=== PATIENT | female | born 1955 | race Caucasian/White ===

== ENCOUNTER 2020-05-28 09:26 | Emergency (ER) | payer OTHER, SELFPAY ==
--- NOTE | ~2020-05-28 | XR_ITS ---
EXAMINATION: XR knee RT 2V EXAM DATE: 05/28/2020 10:25 INDICATION: No known recent injury provided at this time. Pain of the right knee. Swelling. TECHNIQUE: Frontal and lateral projections of the right knee. There is no prior study for compariso n. FINDINGS: There is no right knee joint effusion. There are no acute fractures or dislocations identi fied. There is no subcutaneous gas. There is severe edema anterior to the patella and patellar tend on which is nonspecific, but could indicate prepatellar bursitis. There are no radiopaque foreign elva dies. There is minimal primary osteoarthritis. IMPRESSION: Severe anterior soft tissue swelling, nonspecific. Recommend considering prepatellar burs itis. Reviewed, dictated and finalized at location G. IMPRESSION: Severe anterior soft tissue swelling, nonspecific. Recommend consid ering prepatellar bursitis.
[2020-05-28 09:41] VITALS: BP 140/88; PULSE 88; RESP 20; TEMP 36.6; O2SAT 98
[2020-05-28] MEDS: KETOROLAC 30 MG/ML VIAL (*BKC) IV PUSH (09:53)
[2020-05-28 10:20] LABS: Hematocrit 38.4 % (35.0-49.0); Hemoglobin 13.2 g/dL (12.0-15.0); Mean Corpuscular HGB Conc 34.4 g/dL (32.0-36.0); Mean Corpuscular Hemoglobin 31.7 pg (27.0-31.0); Mean Corpuscular Volume 92.3 fL (78.0-102.0); Mean Platelet Volume 8.4 fl (9.2-11.8); Platelet Count Result 234 K/mm3 (150-420); Red Blood Count 4.16 M/mm3 (4.20-5.40); Red Cell Distribution Width 12.1 % (11.6-14.4); White Blood Count 12.9 K/mm3 (4.8-10.8)
[2020-05-28 10:31] LABS: Alanine Aminotransferase 25 U/L (14-59); Albumin Level 3.3 g/dL (3.4-5.0); Alkaline Phosphatase 65 U/L (46-116); Anion Gap 13.7 mmol/L (7-16); Aspartate Amino Transferase 20 U/L (15-37); Bilirubin,Total 1.2 mg/dL (0.00-1.00); Blood Urea Nitrogen 17 mg/dL (7-18); Calcium 8.3 mg/dL (8.5-10.1); Carbon Dioxide 24 mmol/L (21-32); Chloride 103 mmol/L (98-108); Estimated CRCL calculation 47 ml/min; Estimated Glomerular Filt Rate 48; Glucose 207 mg/dL (70-99); Osmolality Calculated 291 mOsm/kg (285-295); Potassium 3.7 mmol/L (3.5-5.1); Sodium 137 mmol/L (136-145); Total Protein 6.9 g/dL (6.4-8.2)
--- NOTE | 2020-05-28 10:39 | ED.GENADULT ---
HPI - General Adult General Chief complaint: Unspecified Stated complaint: Right knee Source: patient Mode of arrival: ambulatory Limitations: no limitations History of Present Illness HPI narrative: This is a 64-year-old gentleman with no significant past medical history that presents with right anterior knee swelling no known injury at except for walking up and down ladders while working, no blunt injury there is some warmth and swelling and tenderness to the anterior right knee has mildly reduced range of motion secondary to swelling, patient is afebrile, no no drainage from the knee no wounds noted, there is no chest pain, no shortness of breath no abdominal pain no fever chills. Onset (ago): day(s) Location: right and lower extremity Severity: moderate Quality: aching Pain Consistency: constant Relieving factors: cold therapy Exacerbating factors: movement Associated symptoms: denies other symptoms Treatments prior to arrival: none Related Data Allergies Allergy/AdvReac Type Severity Reaction Status Date / Time No Known Allergies Allergy Verified 05/28/20 09:39 Review of Systems Review of Systems: All systems reviewed & are unremarkable except as noted in HPI and below PMFSH Past Medical History Medical History Patient denies medical problems Social History Social History Gender identity (if verbalized by the patient): Male Exam Const: General: no acute distress and alert Orientation/consciousness: patient oriented x3 Limitations: altered mental status HENMT: Head: normal to inspection Eyes: Conjunctivae: conjunctivae normal Pupils: Equal, round and reactive pupils present EOM: EOMs intact bilaterally Neck: Neck: normal visual inspection, no lymphadenopathy and no meningeal signs Chest: Chest palpation & inspection: normal inspection of the chest Resp: Effort & Inspection: normal respiratory effort Auscultation: clear to auscultation bilaterally Cardio: Rate: regular rate Rhythm: regular rhythm GI: GI Palp: Yes Soft to palpation Percussion: Yes normal to percussion Back/Spine/Pelvis: Back: no CVA tenderness Skin: Other: right anterior knee pain with swelling redness and warmth and tender to touch. Psych: Appearance: grossly normal Mental Status: mental status grossly normal Thought content: Yes Normal thought content present Course Course Emergency Course: Patient received ceftriaxone and Toradol and appears more comfortable and advised patient to follow-up with primary care doctor can use cold compress to affected knee limit his activities and take medicine as prescribed. Vital Signs Vital signs: Vital Signs Temperature 36.6 C 05/28/20 09:41 Pulse Rate 88 05/28/20 09:41 Respiratory Rate 20 05/28/20 09:41 Blood Pressure 140/88 05/28/20 09:41 Pulse Oximetry 98 05/28/20 09:41 Temperature 36.6 C 05/28/20 09:41 Pulse Rate 88 05/28/20 09:41 Respiratory Rate 20 05/28/20 09:41 Blood Pressure 140/88 05/28/20 09:41 Pulse Oximetry 98 05/28/20 09:41 Medical Decision Making Vital Signs Vital Signs: Vital Signs Temperature 36.6 C 05/28/20 09:41 Pulse Rate 88 05/28/20 09:41 Respiratory Rate 20 05/28/20 09:41 Blood Pressure 140/88 05/28/20 09:41 Pulse Oximetry 98 05/28/20 09:41 Temperature 36.6 C 05/28/20 09:41 Pulse Rate 88 05/28/20 09:41 Respiratory Rate 05/28/20 09:41 Blood Pressure 140/88 05/28/20 09:41 Pulse Oximetry 98 05/28/20 09:41 Lab Data Result diagrams: 05/28/20 09:57 05/28/20 09:57 Labs: Lab Results 05/28/20 05/28/20 05/28/20 Range/Units 09:57 09:57 09:57 WBC 12.9 H (4.8-10.8) K/mm3 RBC 4.16 L (4.20-5.40) M/mm3 Hgb 13.2 (12.0-15.0) g/dL Hct 38.4 (35.0-49.0) % MCV 92.3 (78.0-102.0) fL MCH 31.7 H (27.0-31.0) pg MCHC
[2020-05-28 10:52] VITALS: BP 130/70; PULSE 70; RESP 16; TEMP 36.6
== END 2020-05-28 10:56 | disposition home or self-care (01) ==
PROVIDERS: Emergency Provider Emergency Medicine; PCP Internal Medicine
DX: L03.115 Cellulitis of right lower limb (principal); M70.51 Other bursitis of knee, right knee
CPT/HCPCS: 36415; 73560; 80053; 83605; 85027; 87040; 96365; 96375; 99283; 99284; J0696; J1885

== ENCOUNTER 2020-06-18 10:12 | Outpatient (CLI) | payer OTHER, SELFPAY ==
--- NOTE | ~2020-06-18 | MR_ITS ---
EXAMINATION: MR knee RT wo/w con DATE: 06/18/2020 11:28 INDICATION: Right knee joint effusion. Septic arthritis. Right knee pain. TECHNIQUE: Magnetic resonance imaging (MRI) of the right knee was performed without and with 18 mL Mu ltiHance intravenous contrast. Sequences included axial T1-weighted FS FSE and axial, sagittal, and c oronal T1-weighted FSE, T2-weighted FS FSE, and postcontrast T1-weighted FS FSE. COMPARISON: Right knee radiographs 05/28/2020 FINDINGS: Medial compartment: There is a complex tear involving body and posterior horn of medial meniscus. There is cartilage surf chi irregularity of tibial condyle. There is deep partial thickness cartilage loss of femoral condyle involving the central articular surface with mild subchondral edema-like marrow signal intensity. Th ere is shallow partial-thickness cartilage loss of femoral condyle involving the lateral and posterio r articular surface. Osteophytes are noted. Lateral compartment: There is an undersurface horizontal tear of body of lateral meniscus. There is deep partial thickness cartilage loss involving posterior tibial articular surface and posterior femoral articular surface. There is extensive cartilage surface irregularity of femoral condyle and tibial condyle. Osteophytes are noted. Patellofemoral compartment: There is full-thickness cartilage loss of patellar medial facet with mild subchondral edema-like yovanny ow signal intensity. There is cartilage surface irregularity of patellar lateral facet. There is a la rge area of full-thickness cartilage loss of central and medial trochlea with mild subchondral edema edema-like marrow signal intensity. Osteophytes are noted. Ligaments and tendons: The anterior and posterior cruciate ligaments are normal. Medial collateral ligament and lateral curtis ateral ligament complex are normal. There is mild patellar tendinopathy. Fluid: There is no knee joint effusion. There is prepatellar bursitis with a fluid collection measuring 2.3 x 0.8 x 2.9 cm with surrounding soft tissue swelling. IMPRESSION: 1. Prepatellar bursitis. 2. Severe chondrosis of patellofemoral compartment and moderate chondrosis of medial and lateral comp artments. 3. Tears of medial and lateral menisci. Reviewed, dictated and finalized at location A. IMPRESSION: 1. Prepatellar bursitis. 2. Severe chondrosis of patellofemoral compartment and moderate chondrosis of m edial and lateral compartments. 3. Tears of medial and lateral menisci.
== END 2020-06-18 10:13 | disposition home or self-care (01) ==
PROVIDERS: PCP Internal Medicine; Visit Provider Internal Medicine
DX: M25.561 Pain in right knee (principal); M25.461 Effusion, right knee; M00.9 Pyogenic arthritis, unspecified
CPT/HCPCS: 73723; A9577

== ENCOUNTER → 2020-12-23 02:32 | Outpatient (CLI) | payer OTHER, SELFPAY ==
[2020-12-23 21:58] LABS: SARS-CoV-2 RNA PCR Negative
== END ==
PROVIDERS: PCP Internal Medicine; Visit Provider Surgery
DX: Z01.812 Encounter for preprocedural laboratory examination (principal); Z20.822 Contact with and (suspected) exposure to COVID-19
CPT/HCPCS: C9803; U0003; U0005

== ENCOUNTER 2020-12-26 01:04 | Day surgery (SDC) | payer OTHER, SELFPAY ==
[2020-12-16 08:20] VITALS: BMI 24.5
--- NOTE | 2020-12-23 09:43 | WPDANESEPPF ---
Anes - Initial Pre Proc Eval Procedure: Operation Date: 12/26/20 12:00 Proposed Procedures p Screening Colonoscopy - Dannie York DO Date/Time: 12/23/20 09:43 Surgeon: Dannie York DO Pre Op Diagnosis: Neoplasm Screening Patient Data Age: 65 Gender: M Height: 1.8 m Weight: 80 kg Allergies Allergy/AdvReac Type Severity Reaction Status Date / Time No Known Allergies Allergy Verified 12/26/20 10:38 Home Medications Medication Instructions Recorded Confirmed Type No Home Medications 12/16/20 12/16/20 History Patient hx anesthesia problems: none Family hx anesthesia problems: none PMFSH Social History Social History Smoking packs per day: 1 Smoking cigarettes per day: 20.0 Years smoked: 12 Smoking pack-years: 12.00 Smoking status: Former smoker Tobacco type: cigarettes Alcohol intake: current Drinks per week: 10 Substance use: never Substance use type: does not use Living arrangements: with family Gender identity (if verbalized by the patient): Male Spiritual care concerns: No Anes - Eval Final PreProcedure Day of Procedure 12/23/20 09:43 Patient weight: normal Heart: regular rate and rhythm Lungs: clear to auscultation and normal air movement Airway: Mallampati scale class II Neurological: alert and oriented Last oral intake: >/= 8 hours ASA classification: II Emergent: no Anesthetic plan: proceed Anesthesia type and monitoring: general GIVS and standard monitoring Informed Consent: The patient's anesthetic plan and its attendant risks and benefits were discussed with the patient/family/POA. Questions were solicited and answers provided to the satisfaction of the patient/family/POA.
[2020-12-26 10:40] VITALS: BP 156/80; PULSE 76; RESP 18; TEMP 36.5; O2SAT 100
[2020-12-26] MEDS: LACTATED RINGERS 1,000 ML 150 ML IV CONT (10:43)
--- NOTE | 2020-12-26 11:49 | PM.IMHP ---
H&P: HPI History of Present Illness Date/Time: 12/26/20 11:49 Chief Complaint: Screening for CRC Narrative: Otilio Fox Jr. is a 65 year old male who presents for colonoscopy. He thinks it has been 14 years since his last colonoscopy. He denies hematochezia or melena, and denies fam hx colon cancer. Review of Systems Review of Systems: All systems reviewed & are unremarkable except as noted in HPI and below Constitutional: Constitutional: Denies chills, Denies fever(s), Denies headache(s) and Denies weight loss Eyes: Eyes: Denies change in vision ENT: Denies dizziness, Denies headache(s), Denies neck mass and Denies throat swelling Cardiovascular: Cardiovascular: Denies chest pain, Denies lightheadedness and Denies dyspnea Respiratory: Respiratory: Denies cough, Denies dyspnea and Denies wheezing Gastrointestinal: Gastrointestinal: Denies abdominal pain, Denies change in bowel habits, Denies nausea and Denies vomiting Genitourinary: Genitourinary: Denies hematuria and Denies dysuria Musculoskeletal: Musculoskeletal: Reports as per HPI Integumentary/Breasts: Skin/Breast: Reports as per HPI Neurologic: Denies dizziness and Denies headache(s) Allergic/Immunologic: Allergic/Immunologic: Denies throat swelling and Denies wheezing [facility] Social History Social History Smoking packs per day: 1 Smoking cigarettes per day: 20.0 Years smoked: 12 Smoking pack-years: 12.00 Smoking status: Former smoker Tobacco type: cigarettes Alcohol intake: current Drinks per week: 10 Substance use: never Substance use type: does not use Living arrangements: with family Gender identity (if verbalized by the patient): Male Spiritual care concerns: No Meds Home Medications and Allergies Home Medications Medication Instructions Recorded Confirmed Type No Home Medications 12/16/20 12/16/20 History Allergies Allergy/AdvReac Type Severity Reaction Status Date / Time No Known Allergies Allergy Verified 12/26/20 10:38 Vital Signs Vital Signs - 24 hr 12/26/20 10:40 Temperature 36.5 C Pulse Rate 76 Respiratory Rate 18 Blood Pressure 156/80 H Pulse Oximetry 100 Exam Const: General: no acute distress and alert Orientation/consciousness: patient oriented x3 HENMT: Head: normocephalic and atraumatic Ears: hearing grossly normal bilaterally General nose exam: Normal nares present Mouth: Yes Normal oral and palatal mucosa present Eyes: Periorbital: periorbital findings normal Sclera: sclerae normal EOM: EOMs intact bilaterally Neck: Neck: normal visual inspection, no lymphadenopathy and trachea midline Chest: Chest palpation & inspection: normal inspection of the chest Resp: Effort & Inspection: normal respiratory effort Auscultation: clear to auscultation bilaterally Cardio: Jugular venous distension: no JVD Rate: regular rate Rhythm: regular rhythm Heart sounds: S1 normal heart sound present and S2 normal heart sound present Peripheral pulses: Peripheral pulses 2+ throughout GI: Inspection: normal to inspection GI Palp: Yes Soft to palpation, No Tenderness to palpation present (GI), No Guarding due to palpation present (GI) and No Rebound tenderness present Percussion: Yes normal to percussion Auscultation: normal bowel sounds : General: Yes no CVA tenderness Back/Spine/Pelvis: Back: no CVA tenderness Neuro: General: patient oriented x3, no focal motor deficits and CN's II-XI intact bilaterally Cognition (Neuro): normal cognition Speech: normal speech Motor exam (neuro): 5/5 motor strength present throughout Extrem: General: capillary refill normal and no clubbing, cyanosis or edema Assessment and Plan Assessment and plan (1) Screening for colorectal cancer: Code(s): Z12.11 - Encounter for screening for malignant neoplasm of colon; Z12.12 - Encounter for screening for malignant neoplasm of rectum
[2020-12-26 12:17] VITALS: BP 104/65; PULSE 60; RESP 16; O2SAT 95
[2020-12-26 12:27] VITALS: BP 116/61; PULSE 52; RESP 18; O2SAT 99
[2020-12-26 12:37] VITALS: BP 122/73; PULSE 48; RESP 18; O2SAT 100
== END 2020-12-26 12:54 | disposition home or self-care (01) ==
PROVIDERS: PCP Internal Medicine; Visit Provider Surgery
PROC: 0DJD8ZZ Inspection of Lower Intestinal Tract, Via Natural or Artificial Opening Endoscopic (ICD-10-PCS; CPT 45378; principal; 2020-12-26 12:00)
DX: Z12.11 Encounter for screening for malignant neoplasm of colon (principal); Z87.891 Personal history of nicotine dependence; K57.30 Diverticulosis of large intestine without perforation or abscess without bleeding; K64.8 Other hemorrhoids
CPT/HCPCS: 45378; C9803; J2001; J2704; J7120; U0003; U0005

== ENCOUNTER 2021-09-18 10:00 | Outpatient (CLI) | payer MEDICARE, SELFPAY ==
[2021-09-18 11:16] LABS: Influenza A QL RT-PCR Negative (Negative); Influenza B QL RT-PCR Negative (Negative); SARS-CoV-2 RNA PCR Negative (Negative)
== END 2021-09-18 10:01 | disposition home or self-care (01) ==
PROVIDERS: PCP Internal Medicine; Visit Provider Internal Medicine
DX: J06.9 Acute upper respiratory infection, unspecified (principal); Z20.822 Contact with and (suspected) exposure to COVID-19
CPT/HCPCS: 87502; C9803; U0003; U0005

== ENCOUNTER 2021-10-16 13:02 | Outpatient (CLI) | payer MEDICARE, SELFPAY ==
[2021-10-16 14:29] LABS: Influenza A QL RT-PCR Negative (Negative); Influenza B QL RT-PCR Negative (Negative); SARS-CoV-2 RNA PCR Positive (Negative)
== END 2021-10-16 13:03 | disposition home or self-care (01) ==
LOC: CHSLAB 13:05
PROVIDERS: PCP Internal Medicine; Visit Provider Nurse Practitioner Family
DX: Z20.822 Contact with and (suspected) exposure to COVID-19 (principal); R50.9 Fever, unspecified
CPT/HCPCS: 87502; C9803; U0003; U0005

== ENCOUNTER 2021-10-17 10:02 | Outpatient (CLI) | payer MEDICARE, SELFPAY ==
--- NOTE | 2021-10-17 10:15 | PC.NURSE ---
PT to room 211 amb. A&Ox3. Has no complaints. Regeneron infusion plan of care explained. Consent signed. Pt has no questions. Oriented to room. Call randall in reach. Reminded to call with needs.
[2021-10-17] MEDS: diphenhydrAMINE HCl CAP 25 MG CAPSULE PO (10:34)
[2021-10-17 10:46] VITALS: BP 149/82; PULSE 70; RESP 20; TEMP 37.2; O2SAT 96
--- NOTE | 2021-10-17 12:03 | PC.NURSE ---
Pt has no complaints. Discharged to home amb per self.
== END 2021-10-17 10:03 | disposition home or self-care (01) ==
LOC: CHSTREATRM 10:04
PROVIDERS: PCP Nurse Practitioner Family; Visit Provider Nurse Practitioner Family
DX: U07.1 COVID-19 (principal)
CPT/HCPCS: A9270; J7050; M0243; Q0244

== ENCOUNTER 2022-10-12 09:12 | Outpatient (CLI) | payer MEDICARE, SELFPAY ==
--- NOTE | ~2022-10-12 | XR_ITS ---
XR wrist RT min 3V DATE: 10/12/2022 09:39 INDICATION: Bilateral wrist and hand pain TECHNIQUE: 4 views COMPARISON: None FINDINGS: Severe joint space narrowing and spurring at the first carpometacarpal joint consistent wit h severe osteoarthritis. Prominent osteoarthritic changes noted including first, fourth and fifth metacarpophalangeal joints. There is mild spurring at the radiocarpal joint. No fracture, dislocation, periosteal reaction or bone destruction, erosive change or chondrocalcinosi s. IMPRESSION: Polyarticular osteoarthritis, particularly severe at first carpometacarpal joint Reviewed, dictated and finalized at location B. ORT ATTENDANT IMPRESSION: Polyarticular osteoarthritis, particularly severe at first carpomet acarpal joint
--- NOTE | ~2022-10-12 | XR_ITS ---
XR wrist LT min 3V DATE: 10/12/2022 09:39 INDICATION: Bilateral wrist and hand joint pain TECHNIQUE: 4 views COMPARISON: None FINDINGS: Severe joint space narrowing and very prominent spurring at the first carpometacarpal joint consistent with severe osteoarthritis. No fracture or dislocation, periosteal reaction or bone destruction or chondrocalcinosis. IMPRESSION: Severe osteoarthritis at first carpometacarpal joint Reviewed, dictated and finalized at location B. TIER
--- NOTE | ~2022-10-12 | XR_ITS ---
XR hand RT min 3V DATE: 10/12/2022 09:38 INDICATION: Bilateral hand joint pain TECHNIQUE: 3 views COMPARISON: None FINDINGS: Prominent polyarticular osteoarthritis producing severe at the first carpometacarpal and fi rst through fourth metacarpal phalangeal joints, moderately prominent osteoarthritis of the metacarpo phalangeal joint as well. Osteoarthritic change involving multiple interphalangeal joints, most sever e at the distal interphalangeal joint of the third digit. There is mild spurring at the radiocarpal j oint. No fracture or dislocation, periosteal reaction or bone destruction, erosive change or chondrocalcino sis. IMPRESSION: Polyarticular osteoarthritis Reviewed, dictated and finalized at location B. NERY TECHNICIAN
--- NOTE | ~2022-10-12 | XR_ITS ---
XR hand LT min 3V DATE: 10/12/2022 09:38 INDICATION: Bilateral hand joint pain TECHNIQUE: 3 views COMPARISON: None FINDINGS: No fracture or dislocation, periosteal reaction or bone destruction. There is prominent polyarticular osteophytosis, increased severe joint space narrowing and very promi nent spurring at the first carpometacarpal joint, prominent osteophytic change at the first through t hird metacarpophalangeal joints and multiple interphalangeal joints. No erosive change is noted. IMPRESSION: Prominent polyarticular osteoarthritis Reviewed, dictated and finalized at location B. IPLE SPINDLE ROUTER OPERATOR
== END 2022-10-12 09:13 | disposition home or self-care (01) ==
LOC: CHSIMG 09:15
PROVIDERS: PCP Internal Medicine; Visit Provider Internal Medicine
DX: M79.642 Pain in left hand (principal); M79.641 Pain in right hand; M25.532 Pain in left wrist; M25.531 Pain in right wrist
CPT/HCPCS: 73110; 73130

== ENCOUNTER 2023-03-01 14:51 | Outpatient (CLI) | payer MEDICARE, SELFPAY ==
[2023-03-01 15:09] LABS: Basophils Absolute Auto 0.02 K/mm3 (0.00-0.10); Basophils Percent Auto 0.2 % (0.0-1.0); Eosinophils Absolute Auto 0.19 K/mm3 (0.02-0.50); Eosinophils Percent Auto 2.1 % (1.0-6.0); Hematocrit 39.9 % (37.0-46.0); Hemoglobin 13.3 g/dL (12.4-15.3); Immature Granulocyte Absolute 0.08 K/mm3 (0.00-0.00); Immature Granulocyte Percent A 0.9 % (0.0-0.0); Lymphocytes Absolute Auto 1.79 K/mm3 (1.10-4.50); Lymphocytes Percent Auto 20.2 % (18.0-42.0); Mean Corpuscular HGB Conc 33.3 g/dL (32.0-36.0); Mean Platelet Volume 8.1 fl (8.7-11.0); Monocytes Absolute Auto 1.41 K/mm3 (0.10-0.90); Monocytes Percent Auto 15.9 % (2.0-11.0); Neutrophils Absolute Auto 5.4 K/mm3 (1.7-7.2); Neutrophils Percent Auto 60.7 % (50.0-70.0); Platelet Count Result 281 K/mm3 (150-420); Red Blood Count 4.29 M/mm3 (4.70-6.10); Red Cell Distribution Width 11.8 % (11.6-14.4); White Blood Count 8.9 K/mm3 (4.8-10.8)
[2023-03-01 15:42] LABS: Alanine Aminotransferase 21 U/L (16-63); Albumin Level 3.4 g/dL (3.4-5.0); Alkaline Phosphatase 83 U/L (46-116); Amylase 43 U/L (25-115); Anion Gap 5 mmol/L (8-16); Aspartate Amino Transferase 21 U/L (15-37); Bilirubin,Total 0.4 mg/dL (0.00-1.00); Blood Urea Nitrogen 13 mg/dL (7-18); Calcium 8.5 mg/dL (8.5-10.1); Carbon Dioxide 31 mmol/L (21-32); Chloride 105 mmol/L (98-108); Estimated Glomerular Filt Rate > 60; Glucose 91 mg/dL (70-99); Lipase 37 U/L (16-77); Osmolality Calculated 292 mOsm/kg (285-295); Potassium 4.6 mmol/L (3.5-5.1); Sodium 141 mmol/L (136-145); Total Protein 6.9 g/dL (6.4-8.2)
== END 2023-03-01 14:52 | disposition home or self-care (01) ==
LOC: CHSLAB 14:54
PROVIDERS: PCP Internal Medicine; Visit Provider Nurse Practitioner Family
DX: R10.9 Unspecified abdominal pain (principal); R19.7 Diarrhea, unspecified
CPT/HCPCS: 36415; 80053; 82150; 83690; 84443; 85025

== ENCOUNTER 2023-03-02 10:49 | Outpatient (CLI) | payer MEDICARE, SELFPAY ==
[2023-03-08 23:12] LABS: Rotavirus Stool Not Detected
== END 2023-03-02 10:50 | disposition home or self-care (01) ==
LOC: CHSLAB 10:50
PROVIDERS: PCP Internal Medicine; Visit Provider Nurse Practitioner Family
DX: R10.9 Unspecified abdominal pain (principal); R19.7 Diarrhea, unspecified
CPT/HCPCS: 87045; 87077; 87147; 87177; 87186; 87209; 87324; 87425; 87427